=== PATIENT | male | born 1960 | race Caucasian/White ===

== ENCOUNTER 2017-01-03 13:02 | Emergency (ER) | payer BC, OTHER ==
[~2017-01-03] VITALS: Ht 170.2 cm; Wt 70.3 kg
--- NOTE | 2017-01-03 13:16 | NUR ---
PT IS IN ROOM #1B. DR HENSON EVALUATED THE PT.
[2017-01-03 16:25] VITALS: BP 125/81
--- NOTE | 2017-01-03 16:25 | NUR ---
PT WAS D/C TO HOME. D/C INSTRUCTIONS GIVEN TO THE PT.
== END 2017-01-03 16:26 | disposition home or self-care (01) ==
LOC: ER 13:02
DX: S13.9XXA Sprain of joints and ligaments of unspecified parts of neck, initial encounter (principal); S09.90XA Unspecified injury of head, initial encounter; V49.9XXA Car occupant (driver) (passenger) injured in unspecified traffic accident, initial encounter; Y93.89 Activity, other specified; Y92.413 State road as the place of occurrence of the external cause; Y99.9 Unspecified external cause status
CPT/HCPCS: 72125; A4663

== ENCOUNTER 2017-12-24 06:02 | Day surgery (SDC) | payer BC, OTHER ==
[2017-12-24] MEDS ORDERED: CEFAZOLIN 1 G VIAL MC ONE (06:03)
[2017-12-24] MEDS ORDERED: KETOROLAC TROMETHAMINE 30 MG INJ IM ONE (06:03)
[2017-12-24] MEDS ORDERED: DEXAMETHASONE SOD PHOSPHATE 4 MG INJ IV ONE (06:03)
[2017-12-24] MEDS ORDERED: SEVOFLURANE 250 ML BOTTLE IH ONE (06:03)
[2017-12-24] MEDS ORDERED: EPHEDRINE SULFATE 50 MG/ML AMPUL MC ONE (06:03)
[2017-12-24] MEDS ORDERED: LIDOCAINE-MPF 2% 5 ML VIAL MC ONE (06:03)
[2017-12-24] MEDS ORDERED: PROPOFOL 200 MG/20 ML BOTTLE IV ONE (06:03)
[2017-12-24] MEDS ORDERED: ONDANSETRON IV *ER 4 MG/2 ML VIAL IV ONE (06:03)
[2017-12-24] MEDS ORDERED: BUPIVACAINE 0.25% 30 ML VIAL ONE (06:54)
[2017-12-24] MEDS ORDERED: MIDAZOLAM HCL 2 MG/2 ML VIAL ONE (07:05)
[2017-12-24] MEDS ORDERED: HYDROMORPHONE 2 MG/1 ML DISP.SYRIN ONE (07:05)
[2017-12-24] MEDS ORDERED: POLYMYXIN B SULFATE 500,000 UNITS, BACITRACIN 50,000 UNITS, NORMAL SALINE 20 ML MC ONE ×3 (07:15)
[2017-12-24] MEDS ORDERED: ONDANSETRON 4 MG/2 ML VIAL ONE (09:41)
== END 2017-12-24 11:10 | disposition home or self-care (01) ==
LOC: DS 06:02
PROVIDERS: ATTEND Surgery
DX: K40.20 Bilateral inguinal hernia, without obstruction or gangrene, not specified as recurrent (principal); Z98.890 Other specified postprocedural states; K21.9 Gastro-esophageal reflux disease without esophagitis
CPT/HCPCS: A4649; A4663; C1781; J0690; J1100; J1170; J1885; J2250; J2405; J3490; J7120

== ENCOUNTER 2023-02-26 10:22 | Emergency (ER) | payer BC, OTHER ==
[~2023-02-26] VITALS: Ht 167.6 cm; Wt 65.8 kg
[2023-02-26] MEDS ORDERED: PAXLOVID PO (11:04)
[2023-02-26 11:27] VITALS: BP 133/84; TEMP 98; O2SAT 99
== END 2023-02-26 11:27 | disposition home or self-care (01) ==
LOC: ER 10:22
DX: U07.1 COVID-19 (principal)
CPT/HCPCS: A4606; A4663